=== PATIENT | female | born 2000 | race Caucasian/White ===

== ENCOUNTER 2020-06-08 21:19 | Emergency (ER) | payer BC, SELFPAY ==
[2020-06-08 21:29] VITALS: BP 124/73; PULSE 95; RESP 16; TEMP 37; O2SAT 96; BMI 24.7
[2020-06-08 21:51] LABS: Appearance Urine CLEAR; Color Urine YELLOW; Glucose Urine UA NEG (NEG); Leukocyte Esterase Urine NEG (NEG); Nitrite Urine NEG (NEG); PH 6.5 (5.0-8.0); Specific Gravity - Urine 1.025 (1.005-1.025); Urine Blood 2+ (NEG); Urine Ketones 15 MG/DL (NEG); Urine Protein NEG (NEG-TRACE)
[2020-06-08 22:16] LABS: Bacteria Urine 1+ /LPF; Squamous Epithelial Cell Urine 3+ /LPF; WBC Urine 0-2 /HPF (0-4)
[2020-06-08 22:22] LABS: Amphetamine Screen Urine Not Detected (Not Detect); Barbiturates, Urine Not Detected (Not Detect); Benzodiazepines Screen Urine Not Detected (Not Detect); Cannabinoid Screen Urine Not Detected (Not Detect); Cocaine Screen Urine Not Detected (Not Detect); Opiate Screen Urine Not Detected (Not Detect); Phencyclidine Screen Urine Not Detected (Not Detect)
--- NOTE | 2020-06-08 22:23 | ED_ITS ---
HPI - General Adult General Chief complaint: Psychiatric Symptoms Stated complaint: CRISIS Time Seen by Provider: 06/08/20 22:05 Source: patient Mode of arrival: EMS Limitations: no limitations History of Present Illness HPI narrative: 19-year-old female who presents emergency department for evaluation of suicidal ideation and increased depression. The patient is a student at [employer]. She states that she was talking to a friend this afternoon and the patient told her friend that she was planning her own . Apparently the friend then told this to a crisis counselor and the patient was then contacted by the RA and a campus counselor. An ambulance was called and the patient was then sent to the emergency department for evaluation. The patient states that she has been having suicidal ideations and that she did cut herself over the past 3 days, lasts cutting herself last night. Patient states that she has had cutting behavior for 4-5 years. She states she made multiple superficial lacerations on both of her wrists. The patient states that her depression is worse but she cannot identify specific trigger. She states that multiple things at school have just bothered and frustrated her. Patient states that she was here in June of 2019 and was admitted to the psychiatric service for approximately 1 week. She denies tobacco and alcohol use. Related Data Home Medications Medication Instructions Recorded Confirmed aripiprazole [Abilify] 10 mg PO BEDTIME 06/08/20 06/08/20 bupropion HCl 300 mg PO QAM 06/08/20 06/08/20 cholecalciferol (vitamin D3) 50 mcg PO DAILY 06/08/20 06/08/20 [Vitamin D3] sertraline 200 mg PO DAILY 06/08/20 06/08/20 Allergies Allergy/AdvReac Type Severity Reaction Status Date / Time scallops [SCALLOPS] Allergy Unknown UNKNOWN Verified 06/08/20 22:02 Review of Systems Review of Systems: Yes all other systems are reviewed and are negative Neurologic: Reports Abnormal speech present [facility] Past Medical History [facility] Narrative: The patient has a history of depression. She denies tobacco, alcohol and drug use. She is a student at [employer]. Social History Social History Advance Directives: No Advance Directives Information Provided: Yes Physical Exam Vital Signs: Vital Signs: Last Vital Signs Temp 98.6 F 06/08/20 21:29 Pulse 95 06/08/20 21:29 Resp 16 02/03/21 21:29 BP 124/73 06/08/20 21:29 Pulse Ox 96 06/08/20 21:29 Body Mass Index 24.7 Const: General: cooperative and healthy appearing Orientation/consciousness: oriented to person and oriented to place Limitations: no limitations HENMT: Head: Yes normal to inspection, Yes normocephalic and Yes atraumatic Ears: external ears normal General nose exam: Normal external nose present Face and sinus: Yes normal facial exam Mouth: Normal oral and palatal mucosa present Throat: Yes posterior oropharynx normal Eyes: Periorbital: periorbital findings normal Eyelids: Yes eyelids normal Conjunctivae: conjunctivae normal Sclerae: sclerae normal Corneas: corneas normal Pupils: Equal, round and reactive pupils present Direct Ophthalmoscopy: normal light reflex Neck: Neck: Yes full ROM, Yes no lymphadenopathy, Yes no meningeal signs, Yes trachea midline and Yes supple Chest: Chest palpation & inspection: normal inspection of the chest and normal palpation of entire chest wall Resp: Effort & Inspection: normal respiratory effort and able to speak in complete sentences Auscultation: clear to auscultation bilaterally Cardio: Rate: regular rate Rhythm: regular rhythm Heart sounds: S1 normal heart sound present, S2 normal heart sound present and no murmurs GI: Inspection: Yes normal to inspection Palpation (GI): Soft to palpation, nontender, no guarding, not rigid and No hepatosplenomegaly present : General: Yes no CVA tenderness Back/Spine/Pelvis: Back: no CVA tenderness Cervical Spine: normal cervical lordosis Thoracic/Lumbar Spine: thoracic and lumbar spine normal to inspection Skin: Lesions: no lesions Rashes: no rashes Wounds: wounds noted (Multi ple, linear, superficial abrasions to the flexor surface of wrists noelle) Neuro: General: oriented to person, oriented to place and no meningeal signs Cranial nerves: Yes CN's II-XII intact bilaterally and Yes Equal, round and reactive pupils present Cognition (Neuro): normal cognition Speech: Abnormal speech present Motor exam (neuro): 5/5 motor strength present throughout Extrem: General: Yes normal to inspection and Yes full ROM Psych: Appearance: well kempt Speech and movement: Normal speech and movement present Affect: normal affect Attitude: cooperative Thought process: Normal thought process present Thought content: Suicidality present Course Course Course Narrative: 18-year-old female, student at [employer], with a history of depression, presents to the emergency department for evaluation of suicidal ideation and self cutting behavior. The patient's exam did reveal multiple superficial lacerations to the flexor surface of her wrist, they appeared to be old and may have occurred over the last several days. The patient does not appear to be intoxicated. I did order a urinalysis and urine drug screen on the patient. The patient is medically cleared for evaluation by crisis. I will order the patient's outpatient medications from her reconciled list. Medical Decision Making Lab Data Labs: Lab Results 06/08/20 06/08/20 Range/Units 21:43 21:43 Urine Color YELLOW Urine Appearance CLEAR Urine pH 6.5 (5.0-8.0) Ur Specific [place] 1.025 (1.005-1.025) Urine Protein NEG (NEG-TRACE) MG/DL Urine Glucose (UA) NEG (NEG) MG/DL Urine Ketones 15 (NEG) MG/DL Urine Blood 2+ H (NEG) Urine Nitrite NEG (NEG) Ur Leukocyte Esterase NEG (NEG) Urine RBC 15-29 H (0) /HPF Urine WBC 0-2 (0-4) /HPF Ur Squamous Epith Cells 3+ /LPF Urine Bacteria 1+ /LPF Urine Opiates Screen Not Detected (Not Detect) Ur Barbiturates Screen Not Detected (Not Detect) Ur Phencyclidine Scrn Not Detected (Not Detect) Ur Amphetamines Screen Not Detected (Not Detect) U Benzodiazepines Scrn Not Detected (Not Detect) Urine Cocaine Screen Not Detected (Not Detect) U Marijuana (THC) Screen Not Detected (Not Detect) Discharge Plan Discharge Prescriptions: No Action sertraline 100 mg Tablet 200 mg PO DAILY RF: 0 aripiprazole [Abilify] 10 mg Tablet 10 mg PO BEDTIME RF: 0 bupropion HCl 300 mg Tablet Extended Release 24 Hr 300 mg PO QAM RF: 0 cholecalciferol (vitamin D3) [Vitamin D3] 50 mcg (2,000 unit) Tablet 50 mcg PO DAILY RF: 0
[2020-06-08 23:17] LABS: UPreg QC Valid YES
[2020-06-08 23:18] LABS: Urine Pregnancy NEGATIVE (NEGATIVE)
--- NOTE | 2020-06-09 01:38 | MHC.CARE ---
CARE Team completes evaluation. CARE Team recommends d/c in the morning w/ safety plan. CARE Team needs to discuss this w/ [place] and psychiatry in the morning. Pt aware of the plan. Full assessment to follow.
[2020-06-09 07:04] LABS: COVID-19 Test Negative (Negative); IDNOW Serial# 9DD0AD1C
--- NOTE | 2020-06-09 07:15 | PC.NURSE ---
SITTING AT DESK EATING [facility]. AWAITING CARE TEAM FOR DISPO THIS AM.
[2020-06-09] MEDS: buPROPion HCl XL 300 MG TAB.ER.24H PO (08:46)
[2020-06-09] MEDS: Cholecalciferol (Vitamin D3) 25 MCG TABLET 50 MCG PO (08:47)
[2020-06-09] MEDS: Sertraline HCL 100 MG TABLET 200 MG PO (08:47)
[2020-06-09 09:00] VITALS: BP 118/73; PULSE 100; TEMP 36.3; O2SAT 100
--- NOTE | 2020-06-09 10:16 | MHC.CARE ---
CARE followed up with pt this am per pass along. Pt stated that she also feels safe to dc and is hoping to get back classes via online learning at the college. Pt denied feeling suicidal and denied urges to self harm in any way. Pt was in agreement with the safety plan made by CARE team last night. T/w and pt reviewed this plan point by point. Pt did not have any questions. Pt did say tat her mother is a strong support in her life. T/w placed a call back to Rajinder at the [facility] with update that pt was clinically not in need of containment or further assessment and is looking forward to return. Prior to t/w meeting w pt this am Rajinder had made 4 calls to the CARE team looking for an update while CARE was in a am meeting. T/w called Rajinder back at 10am on her provided cell number [phone].
--- NOTE | 2020-06-09 11:46 | MHC.CARE ---
CARE team called Rajinder at the [facility] again seeking claritry on pts return. She stated pt can return and when t/w asked where to cab pt to she stated she needed to check on this due to pandemic protocols and get back to t/w right away.
--- NOTE | 2020-06-09 12:41 | PC.NURSE ---
PT TO RETURN TO [facility]. GIVEN LUNCH TRAY. CAMPUS POLICE ARRANGING TRANSPORTATION BACK TO [employer].
== END 2020-06-09 13:03 | disposition home or self-care (01) ==
PROVIDERS: Emergency Medicine; Nurse Practitioner Family; Emergency Provider Emergency Medicine Emergency Medical Services
DX: F33.9 Major depressive disorder, recurrent, unspecified (principal); R45.851 Suicidal ideations; Z20.822 Contact with and (suspected) exposure to COVID-19; Z91.5 Personal history of self-harm; Z79.899 Other long term (current) drug therapy
CPT/HCPCS: 36415; 80307; 81001; 81025; 87635; 99284